=== PATIENT | female | born 1995 | race Hispanic/Latino ===

== ENCOUNTER 2017-11-27 17:40 | Emergency (ER) | payer OTHER ==
[2017-11-27] MEDS ORDERED: predniSONE 20 MG TAB ONE (19:38)
[2017-11-27] MEDS ORDERED: DIPHENHYDRAMINE 25 MG TAB/CAP ONE (19:38)
[2017-11-27] MEDS ORDERED: FAMOTIDINE 20 MG TAB ONE (19:39)
--- NOTE | 2017-11-27 19:51 | RAD REPORT ---
EXAM DESCRIPTION: RAD - Pelvis - 11/27/2017 7:38 pm CLINICAL HISTORY: slip and fall Trauma, pain. COMPARISON: No comparisons FINDINGS: No fracture, dislocation or radiographic evidence of AVN. IMPRESSION: Negative study.
--- NOTE | 2017-11-27 19:52 | RAD REPORT ---
EXAM DESCRIPTION: RAD - Femur Left - 11/27/2017 7:46 pm CLINICAL HISTORY: slip and fall Trauma, pain COMPARISON: No comparisons FINDINGS: No fracture or dislocation is seen.
--- NOTE | 2017-11-27 19:53 | RAD REPORT ---
EXAM DESCRIPTION: RAD - Knee Left 3 View - 11/27/2017 7:47 pm CLINICAL HISTORY: slip and fall;Pain Trauma, pain COMPARISON: Femur Left dated 11/27/2017 FINDINGS: No fracture or dislocation seen.
[2017-11-27] MEDS ORDERED: IBUPROFEN 200 MG TAB PO ONE (19:56)
[2017-11-27] MEDS ORDERED: IBUPROFEN 400 MG TAB ONE ×2 (19:56→19:57)
[2017-11-27] MEDS ORDERED: ACETAMINOPHEN 500 MG TAB ONE (20:01)
--- NOTE | 2017-11-27 20:28 | EDPHYS ---
Physician Documentation [facility] Name: Silvia Preston Age: 22 yrs Sex: Female : 1995 Arrival Date: 11/27/2017 Time: 17:44 Bed 22 Private MD: Shaka Mills V ED Physician Francisco Bosch HPI: 11/27 19:00 This 22 yrs old Female presents to ER via EMS with complaints of Fall Injury. cp 19:00 Details of fall: The patient fell from an upright position, while walking, and struck a cp tile surface. Onset: The symptoms/episode began/occurred today. Associated injuries: The patient sustained left knee. Severity of symptoms: in the emergency department the symptoms are unchanged. 19:00 Patient reports slip and fall on wet napkin at local store. 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 - Social history:: Smoking status: Patient uses tobacco products, smokes one-half pack cigarettes per day. - Ebola Screening: : No symptoms or risks identified at this time. ROS: 19:05 Constitutional: Negative for body aches, chills, fever, poor PO intake. cp 19:05 Eyes: Negative for injury, pain, redness, and discharge. cp 19:05 ENT: Negative for drainage from ear(s), ear pain, difficulty swallowing, difficulty handling secretions. 19:05 Cardiovascular: Negative for chest pain, palpitations. 19:05 Respiratory: Negative for cough, shortness of breath, wheezing. 19:05 Abdomen/GI: Negative for abdominal pain, nausea, vomiting, and diarrhea. 19:05 Back: Positive for pain at rest, pain with movement. 19:05 MS/extremity: Positive for abrasion, pain, tenderness, of the left knee, Negative for deformity, paresthesias. 19:05 Skin: Negative for cellulitis, rash. 19:05 Neuro: Negative for altered mental status, dizziness, headache, loss of consciousness, numbness, syncope, near syncope, weakness. 19:05 All other systems are negative. Exam: 19:15 Constitutional: The patient appears in no acute distress, alert, awake, non-toxic, well cp developed, well nourished. 19:15 Head/Face: Normocephalic, atraumatic. cp 19:15 Eyes: Periorbital structures: appear normal, Conjunctiva: normal, no exudate, no injection, Lids and lashes: appear normal, bilaterally. 19:15 ENT: External ear(s): are unremarkable, Nose: is normal, Mouth: Lips: moist, Posterior pharynx: is normal, airway is patent, no erythema, no exudate. 19:15 Neck: ROM/movement: is normal, is supple, without pain, no range of motions limitations, no nuchal rigidity. 19:15 Chest/axilla: Inspection: normal, Palpation: is normal, no crepitus, no tenderness. 19:15 Cardiovascular: Rate: normal, Rhythm: regular. 19:15 Respiratory: the patient does not display signs of respiratory distress, Respirations: normal, no use of accessory muscles, no retractions, no splinting, no tachypnea, labored breathing, is not present, Breath sounds: are clear throughout, no decreased breath sounds, no stridor, no wheezing. 19:15 Abdomen/GI: Inspection: abdomen appears normal, Bowel sounds: active, all quadrants, Palpation: abdomen is soft and non-tender, in all quadrants. 19:15 Back: pain, that is mild, ROM is normal, no spinal tenderness noted on exam. 19:15 Musculoskeletal/extremity: Perfusion: the extremity is normally perfused throughout, cp Sensation intact. Joints: All joints are normal except the left hip displays tenderness, the left knee displays pain at rest, painful range of motion, swelling, tenderness. 19:15 Skin: cellulitis, is not appreciated, no rash present. cp 19:15 Neuro: Orientation: to person, place \T\ time. Cerebellar function: is grossly normal, Motor: moves all fours, strength is normal, Sensation: no obvious gross deficits. Vital Signs: 18:10 BP 125 / 70; Pulse 75; Resp 18; Temp 97.6; Pulse Ox 100% ; Weight 91.63 kg; Height 5 iw ft. 3 in. (160.02 cm); Pain 7/10; 18:51 BP 108 / 58; Pulse 88; Resp 18; Pulse Ox 96% ; tl3 18:10 Body Mass Index 35.78 (91.63 kg, 160.02 cm) iw MDM: 18:19 Patient medically screened. cp 20:26 Data reviewed: vital signs, nurses notes, radiologic studies, plain films. cp 20:26 Test interpretation: by ED physician or midlevel provider: plain radiologic studies. cp Response to treatment: the patient's symptoms have mildly improved after treatment, and as a result, I will discharge patient. ED course: VSS. Radiology studies negative for acute injury. Knee immobilizer placed and crutches given. Will discharge to home for continued monitoring. 11/27 19:05 Order name: XRAY Knee LEFT 3 view; Complete Time: 20:19 cp 11/27 20:19 Interpretation: Report reviewed. cp 11/27 19:05 Order name: XRAY Pelvis; Complete Time: 20:19 cp 11/27 20:20 Interpretation: Report reviewed. cp 11/27 19:05 Order name: XRAY Femur LEFT; Complete Time: 20:19 cp 11/27 20:20 Interpretation: Reviewed. cp 11/27 20:24 Order name: Crutches cp 11/27 20:25 Order name: Knee Immobilizer cp Administered Medications: 20:01 Not Given (Patient Refused): Ibuprofen 800 mg PO once; if test negative tl3 20:01 Drug: Tylenol 1000 mg Route: PO; tl3 Disposition: 11/27/17 20:27 Discharged to Home. Impression: Other slipping, tripping and stumbling and falls, Pain in left knee - s/p slip and fall. - Condition is Stable. - Discharge Instructions: Knee Immobilizer, Knee Pain. - Prescriptions for Naprosyn 500 mg Oral Tablet - take 1 tablet by ORAL route 2 times per day take with food; 20 tablet. Cyclobenzaprine 10 mg Oral Tablet - take 1 tablet by ORAL route every 8 hours As needed no driving while taking medication; 20 tablet. - Medication Reconciliation Form, Thank You Letter, Antibiotic Education, Prescription Opioid Use form. - Follow up: Anupam Main MD; When: 2 - 3 days; Reason: left knee pain. - Problem is new. - Symptoms have improved. Addendum: 11/30/2017 19:38 Co-signature as Attending Physician, Francisco Bosch MD. r n Signatures: Dispatcher [employer] Alexandria Solares RN RN iw Nieto, Roman, MD MD rn Page, Corey, PA PA cp Juana Ramos, RN RN tl3 Corrections: (The following items were deleted from the chart) 11/27 20:59 20:27 11/27/2017 20:27 Discharged to Home. Impression: Other slipping, tripping and tl3 stumbling and falls; Pain in left knee - s/p slip and fall. Condition is Stable. Forms are Medication Reconciliation Form, Thank You Letter, Antibiotic Education, Prescription Opioid Use. Follow up: Anupam Main; When: 2 - 3 days; Reason: left knee pain. Problem is new. Symptoms have improved. cp
--- NOTE | 2017-11-27 20:28 | ER ---
Nurse's Notes [facility] Name: Silvia Preston Age: 22 yrs Sex: Female : 1995 Arrival Date: 11/27/2017 Time: 17:44 Bed 22 Private MD: Shaka Mills V Diagnosis: Other slipping, tripping and stumbling and falls;Pain in left knee-s/p slip and fall Presentation: 11/27 17:44 Presenting complaint: Patient states: "fell on a wet wipe at [employer] and landed on iw my left knee." c/o back pain and right knee pain is now started. Care prior to arrival: None. Mechanism of Injury: Fall from standing position. Trauma event details: Injury occurred in the [facility], Injury occurred: in a public building. Injury occurred: November 27, 2017. 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 11/25/2017 iw Trauma Activation: Not Applicable Physician: ED Physician; Name: ; Notified At: ; Arrived At: Physician: General Surgeon; Name: ; Notified At: ; Arrived At: Physician: Radiology; Name: ; Notified At: ; Arrived At: Physician: Respiratory; Name: ; Notified At: ; Arrived At: Physician: Lab; Name: ; Notified At: ; Arrived At: Historical: - Allergies: 18:09 Keflex; iw - Home Meds: 18:09 meloxicam 7.5 mg oral tab 1 tab once daily [Active]; clonazepam 0.5 mg Oral tab iw [Active]; aripiprazole 5 mg oral tab 1 tab once daily [Active]; fluoxetine 20 mg Oral cap 1 cap once daily [Active]; trazodone 50 mg Oral tab nightly [Active]; esomeprazole magnesium 40 mg oral cpDR 1 cap once daily [Active]; - PMHx: 18:09 Anxiety; Depression; mood disorder; chronic right knee pain; iw - PSHx: 18:09 Abscess removed x2; iw - Immunization history:: Adult Immunizations up to date. - Social history:: Smoking status: Patient uses tobacco products, smokes one-half pack cigarettes per day. - Ebola Screening: : No symptoms or risks identified at this time. Screenin:51 Abuse screen: Denies threats or abuse. Nutritional screening: No deficits noted. tl3 Tuberculosis screening: No symptoms or risk factors identified. Fall Risk None identified. Assessment: 18:51 General: Appears uncomfortable, well groomed, well developed, well nourished, Behavior tl3 is calm, cooperative, appropriate for age. Pain: Complains of pain in lateral aspect of left knee, posterior aspect of left knee, medial aspect of left knee and left knee. Neuro: Level of Consciousness is awake, alert, obeys commands, Oriented to person, place, time, situation, Appropriate for age. Cardiovascular: Heart tones S1 S2 present Patient's skin is warm and dry. Respiratory: Airway is patent Respiratory effort is even, unlabored, Respiratory pattern is regular, symmetrical, Breath sounds are clear bilaterally. GI: No signs and/or symptoms were reported involving the gastrointestinal system. : No signs and/or symptoms were reported regarding the genitourinary system. EENT: No signs and/or symptoms were reported regarding the EENT system. Derm: No signs and/or symptoms reported regarding the dermatologic system. Musculoskeletal: Reports pain in lateral aspect of left knee, posterior aspect of left knee, medial aspect of left knee and left knee since slipped on a wet spot on the floor at [employer], hit left knee and landed on her back. 20:09 Reassessment: No changes from previously documented assessment. Patient and/or family tl3 updated on plan of care and expected duration. Pain level reassessed. Patient is alert, oriented x 3, equal unlabored respirations, skin warm/dry/pink. pt eating with family at bedside. Vital Signs: 18:10 BP 125 / 70; Pulse 75; Resp 18; Temp 97.6; Pulse Ox 100% ; Weight 91.63 kg; Height 5 iw ft. 3 in. (160.02 cm); Pain 7/10; 18:51 BP 108 / 58; Pulse 88; Resp 18; Pulse Ox 96% ; tl3 18:10 Body Mass Index 35.78 (91.63 kg, 160.02 cm) iw ED Course: 17:44 Patient arrived in ED. mr 17:44 Shaka Mills MD is Private Physician. mr 18:07 Triage completed. iw 18:09 Arm band placed on right wrist. iw 18:15 Juana Ramos, RN is Primary Nurse. tl3 18:19 Kai Meredith PA is PHCP. cp 18:19 Francisco Bosch MD is Attending Physician. cp 18:51 Patient has correct armband on for positive identification. Bed in low position. Call tl3 light in reach. Side rails up X2. Adult w/ patient. Pulse ox on. NIBP on. 18:51 No provider procedures requiring assistance completed. tl3 19:37 Patient moved to radiology via wheelchair. kc2 19:37 X-ray completed. Patient tolerated procedure well. kc2 19:37 Patient moved back from radiology. kc2 19:38 XRAY Knee LEFT 3 view In Process Unspecified. EDMS 19:38 XRAY Pelvis In Process Unspecified. EDMS 19:38 XRAY Femur LEFT In Process Unspecified. EDMS 20:26 Anupam Main MD is Referral Physician. cp 20:52 Knee immobilizer applied on left knee. tl3 Administered Medications: 20:01 Not Given (Patient Refused): Ibuprofen 800 mg PO once; if test negative tl3 20:01 Drug: Tylenol 1000 mg Route: PO; tl3 Outcome: 20:27 Discharge ordered by . cp 20:59 Patient left the ED. tl3 Signatures: Dispatcher [employer] EDCT Piper Montes Irene RN RN iw Kai Meredith PA PA cp Carr, Kelsie kc2 Juana Ramos, RN RN tl3 Corrections: (The following items were deleted from the chart) 18:11 17:44 Method Of Arrival: Wheelchair iw iw
[2017-11-27] MEDS ORDERED: CYCLOBENZAPRINE 10 MG TAB ONE (20:39)
[2017-11-27 23:04] VITALS: TEMP 97.6
[2017-11-27 23:05] VITALS: BP 108/58; O2SAT 96
== END 2017-11-27 20:59 | disposition home or self-care (01) ==
LOC: ER 17:40
DX: M25.562 Pain in left knee (principal); W01.0XXA Fall on same level from slipping, tripping and stumbling without subsequent striking against object, initial encounter; Y93.01 Activity, walking, marching and hiking; Y92.512 Supermarket, store or market as the place of occurrence of the external cause; Z88.1 Allergy status to other antibiotic agents; F17.210 Nicotine dependence, cigarettes, uncomplicated; F41.9 Anxiety disorder, unspecified; F32.9 Major depressive disorder, single episode, unspecified
CPT/HCPCS: 72170; 99284; J7512

== ENCOUNTER 2018-03-19 12:07 | Emergency (ER) | payer OTHER ==
--- NOTE | 2018-03-19 12:51 | ER ---
Nurse's Notes [facility] Name: Silvia Preston Age: 22 yrs Sex: Female : 1995 Arrival Date: 03/19/2018 Time: 12:10 Bed Waiting Private MD: Shaka Mills V Diagnosis: Presentation: 03/19 12:37 Presenting complaint: Patient states: Cough and congestion for 4 days. Denies fever. aj Patient seen at [facility] and By Dr Mills for same complaint. Sent to ER by Dr Mills. Respirations are even and unlabored in triage. Transition of care: patient was received from another setting of care (ambulatory primary care physician practice). Onset of symptoms was March 15, 2018. Risk Assessment: Do you want to hurt yourself or someone else? Patient reports no desire to harm self or others. Initial Sepsis Screen: Does the patient meet any 2 criteria? No. Patient's initial sepsis screen is negative. Does the patient have a suspected source of infection? No. Patient's initial sepsis screen is negative. Note Patient asked during triage how long wait would be and that she was told she would be taken right back by her Dr's office. Patient updated on expected wait time and informed of vitals. Patient stated that she could not wait that long because she has anxiety and she was going to leave. Patient then stormed out of triage. I asked patient's mother if she would like to speak with the charge nurse about her concerns. Stated "No because she already decided she wants to leave so that won't make a difference unless she can get us right back." This nurse again offered to contact charge nurse and family refused. Patient than reentered triage room with fast steady gait and yelled "Come on mom, we need to leave so we can go get my prescriptions!" and then rushed out of triage room with quick gait. Care prior to arrival: None. 12:37 Method Of Arrival: Ambulatory aj 12:37 Acuity: ALEXANDRU 3 aj Triage Assessment: 12:44 General: Appears in no apparent distress. uncomfortable, obese, Behavior is agitated, aj anxious. Pain: Denies pain. EENT: Reports nasal congestion nasal discharge. Neuro: Level of Consciousness is awake, alert, obeys commands, Oriented to person, place, time, situation, Appropriate for age. Respiratory: Reports shortness of breath cough that is Airway is patent Respiratory effort is even, unlabored, Respiratory pattern is regular, symmetrical, Onset: The symptoms/episode began/occurred gradually, the patient has mild shortness of breath. Derm: Skin is intact, is healthy with good turgor, Skin is pink, warm \\T\\ dry. normal. 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 I am not worried about my periods I am worried about being sick right now." Historical: - Allergies: 12:44 Keflex; aj - Home Meds: 12:44 clonazepam 0.5 mg Oral tab [Active]; fluoxetine 20 mg Oral cap 1 cap once daily aj [Active]; trazodone 50 mg Oral tab nightly [Active]; Abilify oral oral [Active]; esomeprazole magnesium 40 mg Oral cpDR 1 cap once daily [Active]; - PMHx: 12:44 Anxiety; chronic right knee pain; Depression; mood disorder; aj - PSHx: 12:44 Abscess removed x2; aj - Immunization history:: Adult Immunizations up to date. - Social history:: Smoking status: Patient/guardian denies using tobacco. - Ebola Screening: : Patient negative for fever greater than or equal to 101.5 degrees Fahrenheit, and additional compatible Ebola Virus Disease symptoms Patient denies exposure to infectious person Patient denies travel to an Ebola-affected area in the 21 days before illness onset No symptoms or risks identified at this time. Vital Signs: 12:44 BP 143 / 66; Pulse 97; Resp 19; Temp 97.9; Pulse Ox 96% on R/A; Weight 90.72 kg; Height aj 5 ft. 2 in. (157.48 cm); 12:44 Body Mass Index 36.58 (90.72 kg, 157.48 cm) aj ED Course: 12:10 Patient arrived in ED. mr 12:10 Shaka Mills MD is Private Physician. mr 12:29 Triage completed. aj 12:44 Arm band placed on right wrist. Patient Patient eloped from triage before being placed. aj 12:50 Kel Peterson MD is Attending Physician. Administered Medications: No medications were administered Outcome: 12:49 Eloped from waiting room, before seeing physician Time discovered patient gone: March at 12:50 12:49 Condition: good 12:50 Patient left the ED. Signatures: Karina Suárez RN RN sari Simon Pam marie Corrections: (The following items were deleted from the chart) 12:28 Presenting complaint: Patient states: Left wrist pain since yesterday during football practice 12:28 Transition of care: patient was not received from another setting of care. [facility] 12:28 Onset of symptoms was March 18, 2018 [facility] 12:28 Risk Assessment: Do you want to hurt yourself or someone else? Patient reports no desire to harm self or others. : Initial Sepsis Screen: Does the patient meet any 2 criteria? No. Patient's initial sepsis screen is negative. Does the patient have a suspected source of infection? No. Patient's initial sepsis screen is negative. 12: Care prior to arrival: None. [facility] 12:28 Method Of Arrival: Ambulatory [facility] 12:28 Acuity: ALEXANDRU 4 [facility] 12:36 Presenting complaint: [facility]
[2018-03-19 12:57] VITALS: BP 143/66; TEMP 97.9; O2SAT 96
== END 2018-03-19 12:50 | disposition left against medical advice (07) ==
LOC: ER 12:07
DX: Z53.21 Procedure and treatment not carried out due to patient leaving prior to being seen by health care provider (principal)
CPT/HCPCS: 99281

== ENCOUNTER 2020-10-01 09:41 | Emergency (ER) | payer SELFPAY ==
--- NOTE | 2020-10-01 11:09 | RAD REPORT ---
EXAM DESCRIPTION: RAD - Chest Single View - 10/01/2020 11:01 am CLINICAL HISTORY: Cough;Fever Chest pain. COMPARISON: Chest Pa And Lat (2 Views) dated 10/01/2017 FINDINGS: Portable technique limits examination quality. Subtle interstitial lung opacities are present. This is suggestive of a mild bronchitis or viral infe ction. The heart is normal in size. No displaced fractures.
[2020-10-01] MEDS ORDERED: ACETAMINOPHEN 500 MG TAB ONE (11:14)
[2020-10-01] MEDS ORDERED: MORPHINE 4 MG/ML SYR ONE (11:14)
[2020-10-01] MEDS ORDERED: NA CHLORIDE 0.9% 1,000 ML ONE (11:15)
[2020-10-01] MEDS ORDERED: ONDANSETRON 4 MG/2 ML VIAL ONE (11:15)
[2020-10-01 11:17] LABS: ALT/SGPT 31 U/L (12-78); AST/SGOT 11 U/L (15-37); Albumin 3.1 g/dL (3.4-5.0); Alkaline Phosphatase 166 U/L (45-117); BUN Blood Urea Nitrogen 7 mg/dL (7-18); Bicarbonate 26 mmol/L (21-32); Bilirubin Direct 0.1 mg/dL (0-0.2); Bilirubin Total 0.4 mg/dL (0.2-1.0); Glucose Level 106 mg/dL (74-106); Lipase 57 U/L (73-393); Potassium 4.2 mmol/L (3.5-5.1); Protein, Total 7.7 g/dL (6.4-8.2); Sodium Level 133 mmol/L (136-145)
[2020-10-01 11:18] LABS: Basophils % 0.5 % (0-1.3); Hematocrit 38.9 % (36.0-45.0); Lymphocytes % 16.5 % (15.3-44.8); MPV 7.5 fL (7.6-11.3); RBC Red Blood Cell Count 4.62 M/uL (3.86-4.86)
[2020-10-01 13:03] LABS: SARS-COV-2 RT PCR NEGATIVE (NEGATIVE)
[2020-10-01 13:18] LABS: Urine Blood 1+ (Negative); Urine Glucose Negative (Negative); Urine Protein Negative (Negative); Urine Specific Gravity 1.015 (1.005-1.030)
[2020-10-01 13:52] LABS: Urine Bacteria LOADED /HPF (<20); Urine RBC <5 /HPF (NONE SEEN)
--- NOTE | 2020-10-01 14:13 | RAD REPORT ---
EXAM DESCRIPTION: CT - Abdomen Pelvis W Contrast - 10/01/2020 1:40 pm CLINICAL HISTORY: Abdominal pain COMPARISON: none. TECHNIQUE: Computed axial tomography of the abdomen pelvis was obtained. 100 cc Isovue-300 was admin istered intravenously. Oral contrast was not requested which limits evaluation of bowel. All CT scans are performed using dose optimization technique as appropriate and may include automated exposure control or mA/KV adjustment according to patient size. FINDINGS: The liver, spleen, pancreas, adrenal and right kidney appear unremarkable. Low-density areas are present within the left kidney reaching periphery the appearance of pyelonephri tis. There is no evidence of diverticulitis. Normal appendix IMPRESSION: Moderate left pyelonephritis
[2020-10-01] MEDS ORDERED: CIPROFLOXACIN HCL 500 MG TAB ONE (14:24)
--- NOTE | 2020-10-01 14:39 | ER ---
Nurse's Notes [facility] Name: Silvia Preston Age: 25 yrs Sex: Female : 1995 Arrival Date: 10/01/2020 Time: 09:42 Bed 30 Private MD: Shaka Mills V Diagnosis: Pyelonephritis - Left;Acute upper respiratory infection, unspecified Presentation: 10/01 10:02 Chief complaint: Patient states: LINDER, body aches, fever, cough for 5 days. States she ll1 had constipation , but took a suppository Thursday with good results. Fever 100.8 at home. Coronavirus screen: Client denies travel out of the [place] in the last 14 days. chills, cough unrelated to allergies, difficulty breathing, fatigue, fever, headache, muscle pain, nausea, shaking with chills, shortness of breath, Client presents with at least one sign or symptom that may indicate coronavirus-19. Standard/surgical mask placed on the client. Ebola Screen: Patient denies travel to an Ebola-affected area in the 21 days before illness onset. Initial Sepsis Screen: Does the patient meet any 2 criteria? No. Patient's initial sepsis screen is negative. Does the patient have a suspected source of infection? Yes: Productive cough/pneumonia. Risk Assessment: Do you want to hurt yourself or someone else? Patient reports no desire to harm self or others. Onset of symptoms was September 26, 2020. 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 Patient/guardian denies using tobacco. Screenin:40 Abuse screen: Denies threats or abuse. Denies injuries from another. Nutritional ca1 screening: No deficits noted. Tuberculosis screening: No symptoms or risk factors identified. Fall Risk IV access (20 points). Assessment: 10:40 General: Appears in no apparent distress. comfortable, Behavior is Reports chills for ca1 >3 days, fever for > 3 days, feeling ill for > 3 days. Pain: Complains of pain in scalp Pain does not radiate. Pain currently is 10 out of 10 on a pain scale. Pain began 2-3 days ago. Neuro: Level of Consciousness is awake, alert, obeys commands, Oriented to person, place, time, situation. Neuro: Reports headache. Cardiovascular: Heart tones S1 S2 present Capillary refill < 3 seconds Patient's skin is warm and dry. Rhythm is sinus tachycardia. Respiratory: Airway is patent Respiratory effort is even, unlabored, Respiratory pattern is regular, symmetrical. Respiratory: Reports cough that is. GI: Abdomen is round non-distended, Bowel sounds present X 4 quads. Abd is soft and non tender X 4 quads. : No signs and/or symptoms were reported regarding the genitourinary system. EENT: No signs and/or symptoms were reported regarding the EENT system. Derm: Skin is intact, is healthy with good turgor, Skin is pink, warm \T\ dry. Musculoskeletal: Circulation, motion, and sensation intact. Capillary refill < 3 seconds. 11:46 Reassessment: Patient appears in no apparent distress at this time. Patient and/or ca1 family updated on plan of care and expected duration. Pain level reassessed. Patient is alert, oriented x 3, equal unlabored respirations, skin warm/dry/pink. Patient states feeling better. 12:30 Reassessment: Patient appears in no apparent distress at this time. Patient and/or zb family updated on plan of care and expected duration. Pain level reassessed. Patient is alert, oriented x 3, equal unlabored respirations, skin warm/dry/pink. family member at bedside. 13:30 Reassessment: Patient appears in no apparent distress at this time. Patient and/or zb family updated on plan of care and expected duration. Pain level reassessed. Patient is alert, oriented x 3, equal unlabored respirations, skin warm/dry/pink. patient ambulating appears to be feeling better. family member remains at bedside. Vital Signs: 10:02 BP 126 / 73; Pulse 110; Resp 18; Temp 101.6; Pulse Ox 96% ; Weight 88.45 kg; Height 5 ll1 ft. 3 in. (160.02 cm); Pain 10/10; 10:40 BP 114 / 78; Pulse 105; Resp 18 S; Pulse Ox 97% on R/A; ca1 11:46 BP 117 / 76; Pulse 101; Resp 16 S; Temp 99.4(O); Pulse Ox 97% on R/A; ca1 13:32 BP 96 / 71; Pulse 95; Resp 16; Pulse Ox 100% on R/A; zb 14:09 BP 104 / 58; Pulse 89; Resp 16; Pulse Ox 99% on R/A; zb 10:02 Body Mass Index 34.54 (88.45 kg, 160.02 cm) ll1 ED Course: 09:42 Patient arrived in ED. am2 09:42 Shaka Mills MD is Private Physician. am2 10:05 Triage completed. ll1 10:06 Arm band placed on. ll1 10:17 Patient placed in an exam room, on a stretcher. ll1 10:22 Arnulfo Pena NP is PHCP. pm1 10:22 Kai Sequeira MD is Attending Physician. pm1 10:38 Nicki Khan, NURY is Primary Nurse. ca1 10:40 Patient has correct armband on for positive identification. Bed in low position. Call ca1 light in reach. Side rails up X 1. Pulse ox on. NIBP on. Door closed. Noise minimized. Lights dimmed. 10:50 Initial lab(s) drawn, by me, sent to lab. COVID swab sent to lab. Flu and/or RSV swab ca1 sent to lab. Strep swab sent to lab. Inserted saline lock: 20 gauge in right antecubital area, using aseptic technique. Blood collected. 10:50 No provider procedures requiring assistance completed. ca1 10:54 Strep Sent. ca1 11:01 Chest Single View XRAY In Process Unspecified. EDMS 11:01 X-ray completed. Portable x-ray completed in exam room. Patient tolerated procedure md1 well. Note: pt shielded for cxr. 13:40 CT Abd/Pelvis - IV Contrast Only In Process Unspecified. EDMS Administered Medications: 10:52 Drug: Tylenol 1000 mg Route: PO; ca1 12:56 Follow up: Response: No adverse reaction; Marked relief of symptoms zb 10:53 Drug: NS 0.9% 1000 ml Route: IV; Rate: 1000 ml; Site: right antecubital; ca1 11:30 Follow up: Response: No adverse reaction; IV Status: Completed infusion; IV Intake: zb 1000ml 10:55 Drug: Zofran (Ondansetron) 4 mg Route: IVP; Site: right antecubital; ca1 12:55 Follow up: Response: No adverse reaction; Marked relief of symptoms zb 10:57 Drug: morphine 4 mg {Note: rass 0.} Route: IVP; Site: right antecubital; ca1 12:55 Follow up: Response: No adverse reaction; Marked relief of symptoms; Pain is decreased; zb RASS: Alert and Calm (0) 14:08 Drug: Ciprofloxacin 500 mg Route: PO; zb Intake: 11:30 IV: 1000ml; Total: 1000ml. zb Outcome: 14:39 Discharge ordered by . pm1 15:13 Patient left the ED. aa5 Addendum: 10/04/2020 08:37 Addendum: Culture Results: Positive urine culture. No further action required. Bacteria s s sensitive to prescribed antibiotic. Signatures: Dispatcher [employer] EDMS Miladis Garnica, RN NURY aa5 Lissette Herrera RN RN ss Arnulfo Pena, MARLYN AUTO BATTERY BUILDER pm1 Karina Villalta am2 Nicki Khan RN RN [facility] Anahi Otero md1 Apolinar Quintanilla RN RN ll1 Micki Garrido RN RN zb Corrections: (The following items were deleted from the chart) 10/01 10:17 10:06 Arm band placed on Patient placed in an exam room, on a stretcher, [place] [id number] 12:21 10:54 CORONAVIRUS+MR.LAB.SABINA drawn and sent. [facility] EDMN
--- NOTE | 2020-10-01 14:39 | EDPHYS ---
Physician Documentation [facility] Name: Silvia Preston Age: 25 yrs Sex: Female : 1995 Arrival Date: 10/01/2020 Time: 09:42 Bed 30 Private MD: Shaka Mills V ED Physician Kai Sequeira HPI: 10/01 10:49 This 25 yrs old Female presents to ER via Wheelchair with complaints of pm1 Headache, Back pain, Cough, Shortness of breath. 10:49 The patient or guardian reports cough. Onset: The symptoms/episode began/occurred 5 pm1 day(s) ago. Severity of symptoms: in the emergency department the symptoms are actually worse. Modifying factors: The symptoms are alleviated by nothing, the symptoms are aggravated by nothing. Associated signs and symptoms: Pertinent positives: Headache, body aches, fever, constipation that was relieved with a suppository. The patient has not experienced similar symptoms in the past. The patient has not recently seen a physician. 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 Patient/guardian denies using tobacco. ROS: 10:49 Eyes: Negative for injury, pain, redness, and discharge, ENT: Negative for injury, pm1 pain, and discharge, Cardiovascular: Negative for chest pain, palpitations, and edema, Respiratory: Negative for shortness of breath, cough, wheezing, and pleuritic chest pain. 10:49 : Negative for injury, bleeding, discharge, and swelling, MS/Extremity: Negative for injury and deformity, Skin: Negative for injury, rash, and discoloration. 10:49 Constitutional: Positive for body aches, fever, Negative for poor PO intake. 10:49 Abdomen/GI: Positive for abdominal pain, constipation, Negative for nausea, vomiting, and diarrhea. 10:49 Back: Positive for flank pain, on the left, Negative for pain with movement. 10:49 Neuro: Positive for headache, Negative for numbness, tingling, weakness. Exam: 10:49 Constitutional: This is a well developed, well nourished patient who is awake, alert, pm1 and in no acute distress. Head/Face: Normocephalic, atraumatic. 10:49 Skin: Warm, dry with normal turgor. Normal color with no rashes, no lesions, and no evidence of cellulitis. 10:49 MS/ Extremity: Pulses equal, no cyanosis. Neurovascular intact. Full, normal range of motion. 10:49 Cardiovascular: Exam negative for acute changes, Rate: normal, Rhythm: regular, Pulses: no pulse deficits are appreciated. 10:49 Respiratory: Exam negative for acute changes, respiratory distress, shortness of breath, Breath sounds: are clear throughout. 10:49 Abdomen/GI: Exam negative for acute changes, Inspection: abdomen appears normal, Palpation: abdomen is soft and non-tender, in all quadrants. 10:49 Back: pain, that is mild, of the left low back. 10:49 Neuro: Exam negative for acute changes, Orientation: is normal, Mentation: is normal, Motor: is normal, moves all fours, Sensation: is normal, no obvious gross deficits. Vital Signs: 10:02 BP 126 / 73; Pulse 110; Resp 18; Temp 101.6; Pulse Ox 96% ; Weight 88.45 kg; Height 5 ll1 ft. 3 in. (160.02 cm); Pain 10/10; 10:40 BP 114 / 78; Pulse 105; Resp 18 S; Pulse Ox 97% on R/A; ca1 11:46 BP 117 / 76; Pulse 101; Resp 16 S; Temp 99.4(O); Pulse Ox 97% on R/A; ca1 13:32 BP 96 / 71; Pulse 95; Resp 16; Pulse Ox 100% on R/A; zb 14:09 BP 104 / 58; Pulse 89; Resp 16; Pulse Ox 99% on R/A; zb 10:02 Body Mass Index 34.54 (88.45 kg, 160.02 cm) ll1 MDM: 10:25 Patient medically screened. pm1 14:38 Data reviewed: vital signs. Data interpreted: Pulse oximetry: on room air is 99 %. pm1 Interpretation: normal. Counseling: I had a detailed discussion with the patient and/or guardian regarding: the historical points, exam findings, and any diagnostic results supporting the discharge/admit diagnosis, lab results, radiology results, the need for outpatient follow up, a family practitioner, to return to the emergency department if symptoms worsen or persist or if there are any questions or concerns that arise at home. 10/01 10:38 Order name: Basic Metabolic Panel pm10/01 10:38 Order name: CBC with Diff pm10/01 10:38 Order name: Hepatic Function pm10/01 10:38 Order name: Lipase; Complete Time: 12:39 pm1 10/01 10:38 Order name: [place] Screen Profile; Complete Time: 12:39 pm1 10/01 10:38 Order name: Strep; Complete Time: 13:08 pm10/01 10:39 Order name: Basic Metabolic Panel; Complete Time: 12:39 EDND 10/01 10:39 Order name: CBC with Automated Diff; Complete Time: 12:39 EDND 10/01 10:39 Order name: Liver (Hepatic) Function; Complete Time: 12:39 EDND 10/01 13:04 Order name: COVID-19/FLU A+B; Complete Time: 13:08 EDND 10/01 13:06 Order name: Throat Culture EDND 10/01 13:18 Order name: Urine Dipstick-Ancillary; Complete Time: 13:33 EDND 10/01 10:38 Order name: IV Saline Lock; Complete Time: 10:54 pm10/01 10:38 Order name: Chest Single View XRAY; Complete Time: 11:16 pm10/01 10:38 Order name: Droplet/Contact Precautions; Complete Time: 10:53 pm10/01 10:38 Order name: O2 Per Protocol; Complete Time: 10:53 pm10/01 12:40 Order name: CT Abd/Pelvis - IV Contrast Only; Complete Time: 14:15 pm10/01 13:23 Order name: Urine --Ancillary (enter results); Complete Time: 15:08 10/01 13:27 Order name: Urine Microscopic Only; Complete Time: 13:58 pm10/01 13:54 Order name: Urine Culture EDMS Administered Medications: 10:52 Drug: Tylenol 1000 mg Route: PO; ca1 12:56 Follow up: Response: No adverse reaction; Marked relief of symptoms zb 10:53 Drug: NS 0.9% 1000 ml Route: IV; Rate: 1000 ml; Site: right antecubital; ca1 11:30 Follow up: Response: No adverse reaction; IV Status: Completed infusion; IV Intake: zb 1000ml 10:55 Drug: Zofran (Ondansetron) 4 mg Route: IVP; Site: right antecubital; ca1 12:55 Follow up: Response: No adverse reaction; Marked relief of symptoms zb 10:57 Drug: morphine 4 mg {Note: rass 0.} Route: IVP; Site: right antecubital; ca1 12:55 Follow up: Response: No adverse reaction; Marked relief of symptoms; Pain is decreased; zb RASS: Alert and Calm (0) 14:08 Drug: Ciprofloxacin 500 mg Route: PO; zb Disposition: 10/02 07:15 Co-signature as Attending Physician, Kai Sequeira MD I agree with the assessment and riky plan of care. Disposition: 10/01/20 14:39 Discharged to Home. Impression: Pyelonephritis - Left, Acute upper respiratory infection, unspecified. - Condition is Stable. - Discharge Instructions: Pyelonephritis, Adult, Upper Respiratory Infection, Adult. - Prescriptions for Cipro 500 mg Oral Tablet - take 1 tablet by ORAL route every 12 hours for 10 days; 20 tablet. Tylenol- Codeine #3 300-30 mg Oral Tablet - take 2 tablets by ORAL route every 4-6 hours As needed; 20 tablet. - Medication Reconciliation Form, Thank You Letter, Antibiotic Education, Prescription Opioid Use form. - Follow up: Emergency Department; When: As needed; Reason: Worsening of condition. Follow up: Private Physician; When: 2 - 3 days; Reason: Recheck today's complaints, Continuance of care, Re-evaluation by your physician. - Problem is new. - Symptoms have improved. Signatures: Dispatcher [employer] Kai Sanz MD MD cha Calderon, Audri RN RN aa5 Arnulfo Pena, BASE ENGINEER BASE ENGINEER pm1 Nicki Khan RN RN ca1 Apolinar Quintanilla RN RN ll1 Micki Garrido RN RN zb Corrections: (The following items were deleted from the chart) 10/01 12:21 10:39 CORONAVIRUS+MR.LAB.BRZ ordered. [facility] 12:22 10:39 Influenza Screen (A \T\ B)+BA.LAB.BRZ ordered. EDMS EDMS 15:13 14:39 10/01/2020 14:39 Discharged to Home. Impression: Pyelonephritis - Left; Acute aa5 upper respiratory infection, unspecified. Condition is Stable. Forms are Medication Reconciliation Form, Thank You Letter, Antibiotic Education, Prescription Opioid Use. Follow up: Emergency Department; When: As needed; Reason: Worsening of condition. Follow up: Private Physician; When: 2 - 3 days; Reason: Recheck today's complaints, Continuance of care, Re-evaluation by your physician. Problem is new. Symptoms have improved. pm1
[2020-10-01 14:57] LABS: Urine Specific Gravity/Preg 1.015 (1.005-1.030)
[2020-10-01 15:36] VITALS: TEMP 99.4
[2020-10-01 15:39] VITALS: BP 104/58; O2SAT 99
== END 2020-10-01 15:13 | disposition home or self-care (01) ==
LOC: ER 09:41
DX: J06.9 Acute upper respiratory infection, unspecified (principal); N12 Tubulo-interstitial nephritis, not specified as acute or chronic; Z20.822 Contact with and (suspected) exposure to COVID-19; Z88.1 Allergy status to other antibiotic agents
CPT/HCPCS: 0240U; 36415; 71045; 74177; 80048; 80076; 81003; 81015; 81025; 83690; 85025; 86308; 87070; 87077; 87081; 87086; 87088; 87186; 96361; 96374; 96375; 99284; J2405; J7030; Q9967

== ENCOUNTER 2020-11-23 13:14 | Emergency (ER) | payer SELFPAY ==
--- NOTE | 2020-11-23 14:52 | ER ---
Nurse's Notes [facility] Name: Silvia Preston Age: 25 yrs Sex: Female : 1995 Arrival Date: 11/23/2020 Time: 13:18 Bed 16 Private MD: Diagnosis: Presentation: 11/23 13:45 Chief complaint: Patient states: Abd pain with N/V for 1 day. No fever. Coronavirus ss screen: Client denies travel out of the [place] in the last 14 days. At this time, the client does not indicate any symptoms associated with coronavirus-19. Ebola Screen: Patient denies travel to an Ebola-affected area in the 21 days before illness onset. Initial Sepsis Screen: Does the patient meet any 2 criteria? HR > 90 bpm. No. Patient's initial sepsis screen is negative. Does the patient have a suspected source of infection? Yes: Acute abdominal pain. Risk Assessment: Do you want to hurt yourself or someone else? Patient reports no desire to harm self or others. Onset of symptoms was November 23, 2020. 13:45 Method Of Arrival: Ambulatory 13:45 Acuity: ALEXANDRU 3 ss Historical: - Allergies: 13:47 Keflex; ss - PMHx: 13:47 Anxiety; chronic right knee pain; Depression; mood disorder; ss - PSHx: 13:47 Abscess removed x2; Carpal Tunnel Repair; ss - Immunization history:: Client reports having NOT received the Covid vaccine. Flu vaccine is not up to date. - Social history:: Smoking status: Patient reports the use of cigarette tobacco products, denies chronic smoking, but will smoke occasionally, Reported history of juuling and/or vaping. Vital Signs: 13:45 BP 135 / 90; Pulse 97; Resp 17; Temp 97.7; Pulse Ox 99% ; Weight 86.18 kg; Height 5 ft. ss 3 in. (160.02 cm); Pain 8/10; 13:45 Body Mass Index 33.66 (86.18 kg, 160.02 cm) ss ED Course: 13:18 Patient arrived in ED. wm 13:46 Triage completed. ss 13:47 Arm band placed on. ss 14:51 Patient's name was called from ER lobby. No response. Unable to locate patient. Will ca1 disposition as left without being seen by a provider. Administered Medications: No medications were administered Outcome: 14:51 Patient left the ED. ca1 Signatures: Lissette Herrera RN RN ss Nicki Khan RN RN ca1 Latricia Spence
[2020-11-23 15:02] VITALS: BP 135/90; TEMP 97.7; O2SAT 99
== END 2020-11-23 14:51 | disposition left against medical advice (07) ==
LOC: ER 13:14
DX: R11.2 Nausea with vomiting, unspecified (principal); F17.210 Nicotine dependence, cigarettes, uncomplicated; F17.290 Nicotine dependence, other tobacco product, uncomplicated; F41.9 Anxiety disorder, unspecified; F32.9 Major depressive disorder, single episode, unspecified; G89.29 Other chronic pain

== ENCOUNTER 2022-08-19 12:35 | Emergency (ER) | payer SELFPAY ==
[2022-08-19] MEDS ORDERED: LORazepam 2 MG/ML VIAL ONE ×2 (12:56→13:28)
--- NOTE | 2022-08-19 14:26 | ER ---
Nurse's Notes [facility] Name: Silvia Preston Age: 27 yrs Sex: Female : 1995 Arrival Date: 08/19/2022 Time: 12:40 Bed 11 Private MD: Diagnosis: Anxiety disorder, unspecified Presentation: 08/19 12:40 Chief complaint: EMS states: Anxiety attack after being pulled over and arrested for ph outstanding warrants. Uncooperative w/ police on scene, yelling and cursing, states that when she goes to long term they don't give her "The name brands of her medications they just give her the generic." Pt crying and hyperventilating upon arrival to ED, HR 120s, EMS unable to obtain BP. Coronavirus screen: Vaccine status: Patient reports being unvaccinated. Ebola Screen: No symptoms or risks identified at this time. Initial Sepsis Screen: Does the patient meet any 2 criteria? No. Patient's initial sepsis screen is negative. Does the patient have a suspected source of infection? No. Patient's initial sepsis screen is negative. Risk Assessment: Do you want to hurt yourself or someone else? Patient reports no desire to harm self or others. 12:40 Method Of Arrival: EMS: [facility] ph 12:43 Onset of symptoms was August 19, 2022. ph 12:43 Acuity: ALEXANDRU 3 ph 12:47 Note Officer at bedside. ph Triage Assessment: 12:58 General: Appears in no apparent distress. obese, Behavior is anxious, crying, fussy. ph Pain: Denies pain. Neuro: Level of Consciousness is awake, alert, obeys commands, Oriented to person, place, time, situation. Cardiovascular: Capillary refill < 3 seconds in bilateral fingers Patient's skin is warm and dry. Rhythm is sinus tachycardia. Respiratory: Airway is patent Respiratory effort is even, unlabored. GI: No signs and/or symptoms were reported involving the gastrointestinal system. Derm: Skin is healthy with good turgor, Skin is pink, warm \\T\\ dry. 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 - Social history:: Smoking status: unknown. - Family history:: not pertinent. - Hospitalizations: : No recent hospitalization is reported. Screenin:45 [facility] ED Fall Risk Assessment (Adult) History of falling in the last 3 months, ph including since admission No falls in past 3 months (0 pts) Confusion or Disorientation No (0 pts) Intoxicated or Sedated No (0 pts) Impaired Gait No (0 pts) Mobility Assist Device Used No (0 pt) Altered Elimination No (0 pt) Score/Fall Risk Level 0 - 2 = Low Risk Oriented to surroundings, Maintained a safe environment, Hourly rounding (assess needs \\T\\ fall precautionary measures) done. Abuse screen: Denies threats or abuse. Denies injuries from another. Nutritional screening: No deficits noted. Tuberculosis screening: No symptoms or risk factors identified. Assessment: 13:49 Reassessment: Patient appears in no apparent distress at this time. Patient and/or ph family updated on plan of care and expected duration. Pain level reassessed. Pt appears less anxious, more calm and relaxed, lying on side in bed no longer noted to be crying, VS improving w/ HR 102, police at bedside. Vital Signs: 12:58 BP 132 / 70; Pulse 119; Resp 23; Temp 97.5; Pulse Ox 100% on R/A; ph 13:44 BP 111 / 84; Pulse 112; Resp 22; Pulse Ox 98% on R/A; nj1 14:24 BP 118 / 83; Pulse 103; Resp 16; Temp 97.8; Pulse Ox 98% on R/A; ph Vitals: 14:24 Cardiac Rhythm Assessment Sinus tach. ph ED Course: 12:40 Patient arrived in ED. rn 12:40 Francisco Bosch MD is Attending Physician. rn 12:40 Lizzie Snyder RN is Primary Nurse. ph 12:45 Triage completed. ph 12:46 Arm band placed on Patient placed in an exam room. ph 12:47 Patient has correct armband on for positive identification. Bed in low position. Call light in reach. Side rails up X 1. quality assurance monitor on. Pulse ox on. NIBP on. 12:58 No provider procedures requiring assistance completed. ph Administered Medications: 12:56 Drug: LORazepam IM 1 mg Route: IM; Site: right deltoid; ph Medication: 12:47 VIS not applicable for this client. ph Outcome: 14:26 Discharge ordered by . rn Signatures: Francisco Bosch MD MD rn Hall, Patricia, RN RN ph Jaco, Norma, RN RN nj1
--- NOTE | 2022-08-19 14:27 | EDPHYS ---
Physician Documentation [facility] Name: Silvia Preston Age: 27 yrs Sex: Female : 1995 Arrival Date: 08/19/2022 Time: 12:40 Bed 11 Private MD: ED Physician Francisco Bosch HPI: 08/19 12:43 This 27 yrs old Female presents to ER via Unassigned with complaints of panic rn attack. 12:43 The patient presents to the emergency department with anxiety. Onset: The rn symptoms/episode began/occurred just prior to arrival. Severity of symptoms: At their worst the symptoms were severe in the emergency department the symptoms are unchanged. The patient has experienced similar episodes in the past. It is unknown whether or not the patient has recently seen a physician. EMS reports patient pulled over by police, had warrant for arrest, patient began to get upset and have panic attack. Per EMS report, patient uncooperative. No meds given. Pt arrested and in handcuffs, with policewoman. . 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 - Social history:: Smoking status: unknown. - Family history:: not pertinent. - Hospitalizations: : No recent hospitalization is reported. ROS: 12:43 Constitutional: Negative for fever, chills, and weight loss, Eyes: Negative for injury, rn pain, redness, and discharge, Cardiovascular: + heart racing Respiratory: + sob Abdomen/GI: Negative for abdominal pain, nausea, vomiting, diarrhea, and constipation, MS/Extremity: Negative for injury and deformity, Skin: Negative for injury, rash, and discoloration, Neuro: Negative for headache, weakness, numbness, tingling, and seizure. Exam: 12:43 Constitutional: Overweight female, crying, hyperventilating, able to control breaths rn with instruction Head/Face: Normocephalic, atraumatic. Eyes: Pupils equal round and reactive to light, extra-ocular motions intact. Cardiovascular: Tachycardic, regular Respiratory: + mild tachypnea Abdomen/GI: soft, non-tender Skin: Warm, dry MS/ Extremity: Pulses equal, no cyanosis. Neurovascular intact. Full, normal range of motion. Equal circumference. Neuro: Awake and alert, GCS 15, moving all 4 extremities. Vital Signs: 12:58 BP 132 / 70; Pulse 119; Resp 23; Temp 97.5; Pulse Ox 100% on R/A; ph 13:44 BP 111 / 84; Pulse 112; Resp 22; Pulse Ox 98% on R/A; nj1 14:24 BP 118 / 83; Pulse 103; Resp 16; Temp 97.8; Pulse Ox 98% on R/A; ph MDM: 12:40 Patient medically screened. rn 14:23 Differential diagnosis: anxiety, stress reaction. Data reviewed: vital signs, nurses rn notes, old medical records, and as a result, I will discharge patient. Test considered but Not performed: Labs: Pt with straightforward story of being arrested and subsequent panic attack, history of panic attacks, without oxygen requirement. . Counseling: I had a detailed discussion with the patient and/or guardian regarding: the historical points, exam findings, and any diagnostic results supporting the discharge/admit diagnosis, the need for outpatient follow up, to return to the emergency department if symptoms worsen or persist or if there are any questions or concerns that arise at home. Response to treatment: the patient's symptoms have markedly improved after treatment, and as a result, I will discharge patient. Special discussion: I discussed with the patient/guardian in detail that at this point there is no indication for admission to the hospital. It is understood, however, that if the symptoms persist or worsen the patient needs to return immediately for re-evaluation. 08/19 12:41 Order name: O2 Sat Monitoring; Complete Time: 12:48 rn 08/19 12:41 Order name: Cardiac monitoring; Complete Time: 12:48 rn Administered Medications: 12:56 Drug: LORazepam IM 1 mg Route: IM; Site: right deltoid; ph Disposition Summary: 08/19/22 14:26 Discharge Ordered Location: Home rn Problem: new rn Symptoms: have improved rn Condition: Stable rn Diagnosis - Anxiety disorder, unspecified rn Followup: rn - With: Private Physician - When: As needed - Reason: Recheck today's complaints, Re-evaluation by your physician Discharge Instructions: - Discharge Summary Sheet rn - Panic Attack rn - Generalized Anxiety Disorder, Adult rn Forms: - Medication Reconciliation Form rn - Thank You Letter rn - Antibiotic graduate internship - Prescription Opioid Use rn Signatures: Francisco oBsch MD MD rn SnyderLizzie RN RN
[2022-08-19 17:45] VITALS: O2SAT 98
[2022-08-19 17:46] VITALS: BP 118/83; TEMP 97.8
== END 2022-08-19 14:37 | disposition home or self-care (01) ==
LOC: ER 12:35
DX: F41.9 Anxiety disorder, unspecified (principal)
CPT/HCPCS: 96372; 99284

== ENCOUNTER 2024-08-08 15:56 | Emergency (ER) | payer BC, SELFPAY ==
--- NOTE | 2024-08-08 17:37 | RAD REPORT ---
EXAM: Foot Left 3 View HISTORY: PAIN COMPARISON: None FINDINGS: Bones: Fracture at the base of the fifth metatarsal with extension to the tarsometatarsal joint and u p to 5 mm of distraction. IMPRESSION: Displaced fifth proximal metatarsal fracture.
[2024-08-08] MEDS ORDERED: HYDROCODONE/APAP 5/325 MG TAB ONE (17:50)
--- NOTE | 2024-08-08 18:27 | EDPHYS ---
Physician Documentation [facility] Name: Silvia Preston Age: 29 yrs Sex: Female : 1995 Arrival Date: 08/08/2024 Time: 15:56 Bed 12 Private MD: ED Physician Francisco Bosch HPI: 08/08 16:35 This 29 yrs old Female presents to ER via Wheelchair with complaints of Foot sb4 Injury. 16:35 patient was walking on a slant when she tripped and fell, twisting her ankle/foot. sb4 complaining of pain and swelling to her left lateral foot. sensation intact. full ROM in toes and ankle. 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 - Infectious Disease History:: Denies. - Social history:: Smoking status: Reported history of juuling and/or vaping. ROS: 16:35 MS/extremity: Positive for injury or acute deformity, pain, swelling, tenderness, of sb4 the dorsum of left foot, 16:35 Constitutional: Negative for fever, chills, and weight loss, 16:35 All other systems are negative, Exam: 16:35 Constitutional: This is a well developed, well nourished patient who is awake, alert, sb4 and in no acute distress. Head/Face: Normocephalic, atraumatic. Eyes: Extra-ocular motions intact. Periorbital areas with no swelling, redness, or edema. ENT: Mucous membranes moist. Respiratory: No increased work of breathing, no retractions or nasal flaring. 16:35 Musculoskeletal/extremity: swelling noted lateral left foot. mild pain with ROM of left ankle. no deformities noted. full ROM in toes. sensation in and pedal pulses intact. Vital Signs: 16:29 BP 148 / 95; Pulse 90; Resp 18 S; Temp 98(TE); Pulse Ox 98% on R/A; Weight 104.33 kg aa5 (R); Height 5 ft. 2 in. (R); 18:43 BP 137 / 88; Pulse 87; Resp 17; Temp 98.2; Pulse Ox 99% ; me1 16:29 Body Mass Index 42.07 (104.33 kg, 157.48 cm) aa5 MDM: 16:05 Medical Screening Exam initiated sb4 17:33 Independent interpretation of the following test(s) in the Emergency Department X-Ray: sb4 My interpretation is My interpretation of the left foot x-ray images is acute displaced fracture of base of fifth metatarsal. 19:31 Data reviewed: vital signs, nurses notes, radiologic studies, and as a result, I will sb4 discharge patient. Counseling: I had a detailed discussion with the patient and/or guardian regarding the historical points, exam findings, and any diagnostic results supporting the discharge/admit diagnosis, radiology results, the need for outpatient follow up, a orthopedic surgeon, to return to the emergency department if symptoms worsen or persist or if there are any questions or concerns that arise at home. 08/08 16:34 Order name: Foot Left 3 View XRAY; Complete Time: 17:37 sb4 08/08 16:34 Order name: Ice pack; Complete Time: 18:22 sb4 08/08 17:55 Order name: Walking boot; Complete Time: 18:33 sb4 08/08 18:26 Order name: Crutches; Complete Time: 18:33 sb4 Administered Medications: 18:00 Drug: HYDROcodone-acetaminophen PO 5 mg-325 mg 1 tabs PO once Route: PO; me1 18:32 Follow up: Response: No adverse reaction; Pain is decreased me1 Disposition: 19:37 Co-signature as Attending Physician, Francisco Bosch MD I reviewed the patient's care rn provided by the Advanced Practice Provider and agree with the diagnosis and treatment plan. Disposition Summary: 08/08/24 18:27 Discharge Ordered Notes: Location: Home sb4 Problem: new sb4 Symptoms: have improved sb4 Condition: Stable sb4 Diagnosis - Displaced fracture of fifth metatarsal bone, left foot sb4 Followup: sb4 - With: Anupam Main MD - When: 1 week - Reason: Recheck today's complaints, Re-evaluation by your physician Discharge Instructions: - Discharge Summary Sheet sb4 - Metatarsal Fracture sb4 Forms: - Patient Portal Instructions sb4 - Leadership Thank You Letter sb4 Prescriptions: - Ibuprofen 800 mg Oral Tablet - take 1 tablet ORAL route every 8 hours As needed take with food; 30 tablet; sb4 Refills: 0, Product Selection Permitted - Tramadol 50 mg Oral Tablet - take 1 tablet ORAL route every 8 hours as needed; 12 tablet; Refills: 0, sb4 Product Selection Permitted Signatures: Dispatcher [employer] Francisco Leon MD MD rn Calderon, Audri, RN RN aa5 Minoo Garrido PAVaughnC PAVaughnC sb4 Alba Hackett RN RN me1
--- NOTE | 2024-08-08 18:27 | ER ---
Nurse's Notes [facility] Name: Silvia Preston Age: 29 yrs Sex: Female : 1995 Arrival Date: 08/08/2024 Time: 15:56 Bed 12 Private MD: Diagnosis: Displaced fracture of fifth metatarsal bone, left foot Presentation: 08/08 16:29 Chief complaint: Patient states: "I was walking across a slanted driveway and I rolled aa5 my ankle and fell". Pt c/o pain to left ankle/foot and reports swelling to left foot. Coronavirus screen: At this time, the client does not indicate any symptoms associated with coronavirus-19. Ebola Screen: Patient denies travel to an Ebola-affected area in the 21 days before illness onset. Initial Sepsis Screen: Does the patient meet any 2 criteria? No. Patient's initial sepsis screen is negative. Does the patient have a suspected source of infection? No. Patient's initial sepsis screen is negative. Risk Assessment: Do you want to hurt yourself or someone else? Patient reports no desire to harm self or others. Onset of symptoms was August 08, 2024. 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 - Infectious Disease History:: Denies. - Social history:: Smoking status: Reported history of juuling and/or vaping. Screenin:12 [facility] ED Fall Risk Assessment (Adult) History of falling in the last 3 months, me1 including since admission Yes- single mechanical fall (1 pt) Confusion or Disorientation No (0 pts) Intoxicated or Sedated No (0 pts) Impaired Gait No (0 pts) Mobility Assist Device Used No (0 pt) Altered Elimination No (0 pt) Score/Fall Risk Level 0 - 2 = Low Risk Maintained a safe environment, Provided non-skid footwear, Hourly rounding (assess needs \\T\\ fall precautionary measures) done. Abuse screen: Denies threats or abuse. Nutritional screening: No deficits noted. Tuberculosis screening: No symptoms or risk factors identified. Assessment: 18:12 General: Appears in no apparent distress. Behavior is calm, cooperative, appropriate me1 for age. Pain: Complains of pain in left foot and dorsum of left foot Pain does not radiate. Pain currently is 7 out of 10 on a pain scale. Quality of pain is described as burning, Pain began suddenly, Is continuous. Neuro: Level of Consciousness is awake, alert, obeys commands, Oriented to person, place, time, situation, Appropriate for age. Cardiovascular: Patient's skin is warm and dry. Respiratory: Airway is patent Respiratory effort is even, unlabored, Respiratory pattern is regular, symmetrical. GI: No signs and/or symptoms were reported involving the gastrointestinal system. : No signs and/or symptoms were reported regarding the genitourinary system. EENT: No signs and/or symptoms were reported regarding the EENT system. Derm: Skin is intact, is healthy with good turgor, Skin is pink, warm \\T\\ dry. Musculoskeletal: Reports pain in left foot and dorsum of left foot. Injury Description: "I was walking across a slanted driveway and I rolled my ankle and fell". Pt c/o pain to left ankle/foot and reports swelling to left foot. Vital Signs: 16:29 BP 148 / 95; Pulse 90; Resp 18 S; Temp 98(TE); Pulse Ox 98% on R/A; Weight 104.33 kg aa5 (R); Height 5 ft. 2 in. (R); 18:43 BP 137 / 88; Pulse 87; Resp 17; Temp 98.2; Pulse Ox 99% ; me1 16:29 Body Mass Index 42.07 (104.33 kg, 157.48 cm) aa5 ED Course: 16:02 Patient arrived in ED. cj3 16:02 Minoo Garrido PA-C is [facility]. sb4 16:02 Francisco Bosch MD is Attending Physician. sb4 16:28 Arm band placed on. aa5 16:30 Triage completed. aa5 17:35 Foot Left 3 View XRAY In Process Unspecified. EDMS 17:59 Alba Hackett, NURY is Primary Nurse. me1 18:12 Patient has correct armband on for positive identification. Bed in low position. Call me1 light in reach. Side rails up X 1. Provided Education on: POC. Verbalized understanding.. Client placed on continuous cardiac and pulse oximetry monitoring. NIBP monitoring applied. Pulse ox on. NIBP on. 18:12 No provider procedures requiring assistance completed. Patient did not have IV access me1 during this emergency room visit. 18:27 Anupam Main MD is Referral Physician. sb4 Administered Medications: 18:00 Drug: HYDROcodone-acetaminophen PO 5 mg-325 mg 1 tabs PO once Route: PO; me1 18:32 Follow up: Response: No adverse reaction; Pain is decreased me1 Medication: 18:12 VIS not applicable for this client. me1 Outcome: 18:27 Discharge ordered by MD. sb4 18:44 Discharged to home via wheelchair, with family, me1 18:44 Condition: stable 18:44 Discharge instructions given to patient, family, Instructed on discharge instructions, follow up and referral plans. medication usage, Demonstrated understanding of instructions, follow-up care, medications, Prescriptions given X 2, 18:44 Patient left the ED. me1 Signatures: Dispatcher [employer] EDMiladis Osorio, RN RN aa5 Minoo Garrido, PA-C PA-C sb4 Alba Hackett RN RN me1 Marina Quan cj3 Corrections: (The following items were deleted from the chart) 18:12 16:29 Chief complaint: Patient states: "I was walking across a slanted driveway and I me1 rolled my ankle and fell". Pt c/o pain to left ankle/foot and reports swelling to left foot. aa5
[2024-08-08 18:50] VITALS: BP 137/88; TEMP 98.2; O2SAT 99
== END 2024-08-08 18:44 | disposition home or self-care (01) ==
LOC: ER 15:56
DX: S92.352A Displaced fracture of fifth metatarsal bone, left foot, initial encounter for closed fracture (principal)